=== PATIENT | male | born 1975 | race Asian ===

== ENCOUNTER 2017-03-15 06:39 | Emergency (ER) | payer SELFPAY ==
[2017-03-15 07:02] VITALS: TEMP 97.7
[2017-03-15 07:07] VITALS: BMI 24.7
--- NOTE | 2017-03-15 07:20 | PDOC ---
Attending Attestation - Resident Resident Name: RamakrishnaToni florez - HPI HPI: 03/18/17 21:38 pt presents to the ED complaining of left arm and chest pain. - Physicial Exam PE: 03/18/17 21:39 Agree with resident exam. Exam is unremarkable except for small bruise to the left upper arm. - Medical Decision Making 03/18/17 21:39 Pt presents to the ED complaining of atypical chest pain. EKG is normal. HEART score is 0. PERC negative. Will discharge home with motrin.
--- NOTE | 2017-03-15 07:34 | PDOC ---
History of Present Illness - General Chief Complaint: Chest Pain Stated Complaint: PAIN LEFT ARM Time Seen by Provider: 03/15/17 07:02 History Source: Patient Exam Limitations: No Limitations - History of Present Illness Initial Comments: 03/15/17 07:28 Patient is a 41M with no significant medical history here today complaining of left arm pain with associated chest pain and arm numbness. The shoulder pain started 3 days ago after visiting family in [place]. The pain is located the middle part of his bicep radiating up his arm into his shoulder and chest. There is associated numbness down the medial section of his left hand. The pain gets worse with movement of the arm. There is no associated nausea, vomiting, diaphoresis or shortness of breath. There is no history of blood clots, leg pain or any estrogen use. There's no associated fevers and chills. Past History - Past Medical History Allergies/Adverse Reactions: Allergies Allergy/AdvReac Type Severity Reaction Status Date / Time No Known Allergies Allergy Verified 03/15/17 07:07 Home Medications: Ambulatory Orders NK [No Known Home Medication] 03/15/17 - Suicide/Smoking/Psychosocial Hx Smoking History: Never smoked Have you smoked in the past 12 months: No Information on smoking cessation initiated: No Hx Alcohol Use: No Drug/Substance Use Hx: No Review of Systems - Review of Systems Comments:: 03/15/17 07:35 GENERAL/CONSTITUTIONAL: No fever or chills. No weakness. HEAD, EYES, EARS, NOSE AND THROAT: No change in vision. No sore throat. CARDIOVASCULAR: Positive for chest pain. Negative for shortness of breath RESPIRATORY: No cough, wheezing, or hemoptysis. GASTROINTESTINAL: No nausea, vomiting, diarrhea or constipation. GENITOURINARY: No dysuria, frequency, or change in urination. MUSCULOSKELETAL: Positive for left arm pain. No neck or back pain. SKIN: No rash NEUROLOGIC: No headache, vertigo, loss of consciousness, or change in strength/ sensation. HEMATOLOGIC/LYMPHATIC: No anemia, easy bleeding, or history of blood clots. ALLERGIC/IMMUNOLOGIC: No hives or skin allergy. *Physical Exam - Vital Signs Last Vital Signs Temp Pulse Resp BP Pulse Ox 97.7 F 72 18 116/67 100 03/15/17 06:57 03/15/17 06:57 03/15/17 06:57 03/15/17 06:57 03/15/17 06:57 - Physical Exam Comments: 03/15/17 07:36 GENERAL: Awake, alert, and fully oriented, in no acute distress HEAD: No signs of trauma, normocephalic, atraumatic EYES: PERRLA, EOMI, sclera anicteric, conjunctiva clear ENT: Auricles normal inspection, hearing grossly normal, nares patent, oropharynx clear without exudates. Moist mucosa NECK: Normal ROM, supple, no lymphadenopathy, JVD, or masses LUNGS: No distress, speaks full sentences, clear to auscultation bilaterally HEART: Regular rate and rhythm, normal S1 and S2, no murmurs, rubs or gallops, peripheral pulses normal and equal bilaterally. ABDOMEN: Soft, nontender, normoactive bowel sounds. No guarding, no rebound. No masses EXTREMITIES: Normal inspection, Normal range of motion, no edema. No clubbing or cyanosis. L ARM: Small amount of bruising along medial aspect of bicep. Mildly tender to palpation along bicep. Neurovascularly intact. Full range of motion with normal strength. NEUROLOGICAL: Cranial nerves II through XII grossly intact. Normal speech, no focal sensorimotor deficits SKIN: Warm, Dry, normal turgor, no rashes or lesions noted. ED Treatment Course - RADIOLOGY Radiology Studies Ordered: Category Date Time Status CHEST PA & LAT [RAD] Stat Radiology 03/15/17 07:27 Ordered Medical Decision Making - Medical Decision Making 03/15/17 07:37 Patient is a 41M with no significant medical history here today complaining of arm pain radiating to chest and down to hand. Vital signs stable and normal. Patient PERCs out. EKG shows normal sinus rhythm, normal rate, normal axis, no st elevations, no t- wave inversions, [id number]. Patient is an extremely low risk chest pain. Story is very consistent with MSK pain. Will evaluate further with chest x-ray. Do not believe that labs are necessary due to patient's pre-test probability. Will treat with ibuprofen. 03/15/17 08:37 CXR shows no cardiac enlargement, no infiltrate, normal lung rossi. No acute cardiopulmonary process. 03/15/17 18:16 Discharged with PCP follow up. *DC/Admit/Observation/Transfer Diagnosis at time of Disposition: Arm pain, anterior Qualifiers: Laterality: left Qualified Code(s): M79.602 - Pain in left arm - Discharge Dispostion Disposition: HOME Condition at time of disposition: Good Admit: No - Patient Instructions Printed Discharge Instructions: DI for Atypical Chest Pain
[2017-03-15] MEDS ORDERED: IBUPROFEN 400 MG TABLET (FP) PO ONE ×2 (07:35→07:45)
[2017-03-15 08:59] VITALS: BP 120/66; PULSE 70
--- NOTE | 2017-03-15 10:51 | EKG ---
Test Reason : Blood Pressure : / mmHG Vent. Rate : 069 BPM Atrial Rate : 069 BPM P-R Int : 166 ms QRS Dur : 092 ms QT Int : 370 ms P-R-T Axes : 069 042 053 degrees QTc Int : 396 ms NORMAL SINUS RHYTHM NORMAL ECG NO PREVIOUS ECGS AVAILABLE BASELINE ARTIFACT Confirmed by JAROD DYE MD ([id number]) on 03/15/2017 10:51:06 AM Referred By: Confirmed By:JAROD DYE MD
--- NOTE | 2017-03-19 09:50 | EKG ---
Test Reason : Blood Pressure : / mmHG Vent. Rate : 070 BPM Atrial Rate : 070 BPM P-R Int : 168 ms QRS Dur : 092 ms QT Int : 370 ms P-R-T Axes : 063 049 058 degrees QTc Int : 399 ms NORMAL SINUS RHYTHM NORMAL ECG WHEN COMPARED WITH ECG OF 15-MAR-2017 06:53, NO SIGNIFICANT CHANGE WAS FOUND Confirmed by DEVI RIOS MD ([id number]) on 03/19/2017 9:49:58 AM Referred By: Confirmed By:DEVI RIOS MD
== END 2017-03-15 08:59 | disposition home or self-care (01) ==
LOC: JER 06:39
DX: R07.89 Other chest pain (principal)
CPT/HCPCS: 71020-TC; 93005; 93010; 99282-25